=== PATIENT | male | born 1960 | race Caucasian/White ===

== ENCOUNTER 2018-06-22 09:06 | Inpatient (IN) | payer OTHER ==
[~2018-06-22] VITALS: Ht 170.2 cm; Wt 110.3 kg
[2018-06-22] MEDS ORDERED: MECLIZINE 12.5 MG TAB PO ONE ×2 (10:30→12:30)
[2018-06-22] MEDS ORDERED: HYDR25TA6 PO (10:45)
[2018-06-22] MEDS ORDERED: ASPI-903 PO (10:46)
[2018-06-22] MEDS ORDERED: LOSA100T8 PO (10:46)
[2018-06-22] MEDS ORDERED: DIAZEPAM 5 MG TAB PO ONE (12:30)
[2018-06-22] MEDS ORDERED: DIAZEPAM 5 MG/ML SYG IV ONE (14:00)
[2018-06-22] MEDS ORDERED: SOD CHLORIDE 0.9% 1,000 ML IV SCH (15:42)
--- NOTE | 2018-06-22 15:51 | ERD ---
ER Documentation Chief Complaint Chief Complaint SEVERE DIZZINESS, ONSET THIS AM, NO HEADACHE, NO WEAKNESS HPI This is a 57-year-old male here for vertigo. The patient states that he had v ertigo 5 years ago. The patient states that this morning he had sudden onset of severe vertigo with no headache. He says the room is spinning creating nausea but no vomiting. He has no numbness, weakness, speech change, visual change, swallowing difficulty. No ringing in the ears. He says if he moves his head is much worse but keeping his head still does decrease the severity but does not resolved. ROS All systems reviewed and are negative except as per history of present illness. Medications Home Meds Reported Medications Aspirin* (Aspirin* Chew) 81 Mg Tab.chew, 81 MG PO DAILY, TAB.CHEW 06/22/18 Losartan Potassium* (Losartan Potassium*) 100 Mg Tablet, 100 MG PO DAILY, TAB 06/22/18 Hydrochlorothiazide* (Hydrochlorothiazide*) 25 Mg Tab, 25 MG PO DAILY, #30 TAB 06/22/18 Allergies Allergies: Coded Allergies: No Known Allergy (Unverified , 06/22/18) PMhx/Soc Medical and Surgical Hx: pt denies Surgical Hx Hx Cardiac Disorders: Yes (HYPERTENSION) Hx Psychiatric Problems: No Hx Miscellaneous Medical Probl: No Hx Alcohol Use: No Hx Substance Use: No Hx Tobacco Use: No Smoking Status: Never smoker FmHx Family History: No coronary disease Physical Exam Vitals Vital Signs Date Temp Pulse Resp B/P (MAP) Pulse Ox O2 O2 Flow FiO2 Time Delivery Rate 06/22/18 97.1 71 15 150/88 97 Room Air 09:53 (108) 06/22/18 98.0 66 16 162/91 95 09:08 (114) Physical Exam Const: Well-developed, well-nourished Head: Atraumatic, normocephalic Eyes: Normal Conjunctiva, PERRLA, EOMI, normal sclera, horizontal/rotational nystagmus ENT: Normal External Ears, Nose and Mouth, moist mucus membranes. Neck: Full range of motion. No meningismus, no lymphadenopathy. Resp: Clear to auscultation bilaterally, no wheezing, rhonchi, rales Cardio: Regular rate and rhythm, no murmurs, S1 S2 present Abd: Soft, non tender x 4, non distended. Normal bowel sounds, no guarding or rebound, no pulsitile abdominal masses or bruits Skin: No petechiae or rashes, no ecchymosis , no maculopapular rash Back: No midline or flank tenderness Ext: No cyanosis, or edema, FROM x 4, normal inspection, neurovascularly intact x 4 Neur: Awake and alert, STR 5/5 x 4, sensation intact x 4, no focal findings, cerebellum intact, movement of the head induces severe vertigo. Positive Hallpike, Psych: Normal Mood and Affect Results 24 hrs Current Medications Medications Dose Sig/Mark Start Time Status Last (Trade) Ordered Route PRN Stop Time Admin Dose Reason Admin Meclizine 25 mg ONCE ONCE 06/22/18 DC 06/22/18 HCl PO 10:30 10:46 (Antivert) 06/22/18 10:31 Meclizine 25 mg ONCE ONCE 06/22/18 DC 06/22/18 HCl PO 12:30 12:27 (Antivert) 06/22/18 12:31 Diazepam 5 mg ONCE ONCE 06/22/18 DC 06/22/18 (Valium) PO 12:30 12:27 06/22/18 12:31 Diazepam 5 mg ONCE ONCE 06/22/18 DC 06/22/18 (Valium) IV 14:00 15:05 06/22/18 14:01 Procedures/MDM The patient received multiple doses of Antivert and multiple doses of IV Valium. His vertigo is not improved. He still having symptomatic vertigo with nystagmus. I will admit to the hospital to Dr. Gan in order MRI brain with labs. His symptomatology is consistent with the peripheral vertigo however he is unresolving and will admit for further workup Departure Diagnosis: Primary Impression: Vertigo Condition: Stable RAJAT MARTINOPablo VIVAS Jun 22, 2018 15:51
[2018-06-22] MEDS ORDERED: ONDANSETRON 4 MG INJ IV PRN ×2 (16:00→17:00)
[2018-06-22] MEDS ORDERED: ACETAMINOPHEN 325 MG TAB PO PRN ×2 (16:00→17:00)
[2018-06-22] MEDS ORDERED: NACL 0.9% 3 ML SYG IV SCH (17:00)
[2018-06-22] MEDS ORDERED: HYDROmorphONE 0.5 MG/0.5 ML SYG IV PRN (17:00)
[2018-06-22] MEDS: SOD CHLORIDE 0.9% 1,000 ML IV SCH (17:46)
--- NOTE | 2018-06-22 18:02 | NUR ---
ER Admission note: Pt. A/Ox4, VSS, no acute distress. Pt. oriented to room and call light. Walk with me letter given. Pt. brought up by wheelchair and ambulated to bed. IVF hung. Skin assessed, and pictures taken. Meal tray given to pt. Bed alarm on, call light within reach, hourly rounding done, encouraged to call for assistance. Lift Mechanic services used; [place] [phone]. Will continue to monitor and endorse care to oncoming nurse.
[2018-06-22 18:08] VITALS: BP 154/79; PULSE 71; RESP 12
[2018-06-22 18:38] VITALS: Ht 170.2 cm; Wt 110.3 kg
[2018-06-22] MEDS: FAMOTIDINE 20 MG INJ IV SCH (20:24)
--- NOTE | 2018-06-22 21:05 | NUR ---
TO MRI DEPT VIA WHEELCHAIR. FOR MRI OF THE BRAIN.
--- NOTE | 2018-06-22 21:50 | NUR ---
ARRIVED FROM MRI. TO BED COMFORTABLY.
[2018-06-22] MEDS: DIAZEPAM 5 MG/ML SYG IV PRN (23:11)
[2018-06-23 02:00] VITALS: BP 140/74; PULSE 79; RESP 17
[2018-06-23] MEDS: SOD CHLORIDE 0.9% 1,000 ML IV SCH ×3 (05:51→16:18)
--- NOTE | 2018-06-23 06:33 | NUR ---
END OF SHIFT NOTE: PATIENT IS ALERT AND ORIENTED. AMBULATORY WITH ASSIST. STILL WITH DIZZINESS. FALL PRECAUTION OBSERVED. CALL LIGHT WITHIN REACH. MRI OF THE BRAIN DONE. ALL NEEDS MET.
[2018-06-23 08:00] VITALS: BP 142/82; PULSE 79; RESP 19
[2018-06-23] MEDS: FAMOTIDINE 20 MG INJ IV SCH (08:48)
[2018-06-23] MEDS: ENOXAPARIN 30 MG/0.3 ML SYG SC SCH (08:53)
[2018-06-23] MEDS: MECLIZINE 25 MG TAB PO PRN ×2 (10:49→17:53)
--- NOTE | 2018-06-23 12:36 | HP ---
Date/Time of Note Date/Time of Note DATE: 06/23/18 TIME: 12:35 Assessment/Plan VTE Prophylaxis Risk score (from Ns)>0 risk: 1 SCD applied (from Ns): Yes Pharmacological prophylaxis: LMWH Lines/Catheters IV Catheter Type (from Nrs): Peripheral IV Urinary Cath still in place: No Assessment/Plan Hospital Course 1) BPV - meclizine and benzodiazepine 2) hypertension - continue home meds Result Diagram: 06/23/18 0558 06/23/18 0558 Results 24hrs Laboratory Tests Test 06/22/18 16:00 06/23/18 05:58 White Blood Count 9.7 14.5 #H Red Blood Count 4.94 4.86 Hemoglobin 14.6 14.6 Hematocrit 44.0 42.5 Mean Corpuscular Volume 89.1 87.4 Mean Corpuscular Hemoglobin 29.6 30.0 Mean Corpuscular Hemoglobin Concent 33.2 34.4 Red Cell Distribution Width 13.0 12.9 Platelet Count 315 322 Mean Platelet Volume 9.9 9.4 Immature Granulocytes % 0.300 0.300 Neutrophils % 68.7 70.2 Lymphocytes % 19.3 16.5 Monocytes % 8.8 10.9 Eosinophils % 1.9 1.5 Basophils % 1.0 0.6 Nucleated Red Blood Cells % 0.0 0.0 Immature Granulocytes # 0.030 0.040 H Neutrophils # 6.6 10.2 H Lymphocytes # 1.9 2.4 Monocytes # 0.9 1.6 H Eosinophils # 0.2 0.2 Basophils # 0.1 0.1 Nucleated Red Blood Cells # 0.0 0.0 Sodium Level 140 143 Potassium Level 3.4 L 3.5 Chloride Level 99 105 Carbon Dioxide Level 25 26 Anion Gap 16 H 12 Blood Urea Nitrogen 17 15 Creatinine 1.04 1.03 Est Glomerular Filtrat Rate mL/min > 60 > 60 Glucose Level 132 103 Calcium Level 9.0 9.0 Total Bilirubin 0.2 0.3 Direct Bilirubin 0.00 0.00 Indirect Bilirubin 0.2 0.3 Aspartate Amino Transf (AST/SGOT) 36 32 Alanine Aminotransferase (ALT/SGPT) 28 24 Alkaline Phosphatase 106 99 Total Protein 7.9 7.4 Albumin 4.4 4.0 Globulin 3.50 H 3.40 H Albumin/Globulin Ratio 1.25 1.17 Hemoglobin A1c 5.4 HPI/ROS Admit Date/Time Admit Date/Time Jun 22, 2018 at 15:43 Hx of Present Illness Patient with a history of hypertension comes in with severe vertigo for the last 2 days that has cause nausea and vomiting. Patient has had this in the past. PMH/Family/Social Past Medical History Medical History: hypertension Medications Current Medications Sodium Chloride 1,000 ml @ 100 mls/hr Q10H IV Last administered on 06/23/18at 05:51; Admin Dose 100 MLS/HR; Start 06/22/18 at 16:44 IV Flush (NS 3 ml) 3 ml PER PROTOCOL IV Last administered on 06/23/18at 02:23; Admin Dose 3 ML; Start 06/22/18 at 17:00 Ondansetron HCl (Zofran Inj) 4 mg Q6H PRN IV NAUSEA AND/OR VOMITING; Start 06/22/18 at 17:00 Acetaminophen (Tylenol Tab) 650 mg Q6H PRN PO PAIN LEVEL 1-3 OR FEVER; Start 06/22/18 at 17:00 Hydromorphone HCl (Dilaudid) 0.4 mg Q4H PRN IV SEVERE PAIN LEVEL 7-10; Start 06/22/18 at 17:00 Enoxaparin Sodium (Lovenox) 30 mg DAILY SC Last administered on 06/23/18at 08:53; Admin Dose 30 MG; Start 06/23/18 at 09:00 Meclizine HCl (Antivert) 25 mg Q6 PRN PO dizziness Last administered on 06/23/18at 10:49; Admin Dose 25 MG; Start 06/22/18 at 17:00 Diazepam (Valium) 5 mg Q6H PRN IV FOR AGITATION AND SLEEPING Last administered on 06/22/18at 23:11; Admin Dose 5 MG; Start 06/22/18 at 22:00 Famotidine (Pepcid) 20 mg Q12 PO ; Start 06/23/18 at 21:00 Coded Allergies: No Known Allergy (Unverified , 06/22/18) Social History Smoking Status: Never smoker Exam/Review of Systems Vital Signs Vitals Vital Signs Date Temp Pulse Resp B/P (MAP) Pulse Ox O2 O2 Flow FiO2 Time Delivery Rate 06/23/18 98.2 79 19 142/82 93 Room Air 08:00 (102) Intake and Output 12/26/18 12/26/18 12/27/18 1515:00 23:00 07:00 IntakeIntake Total 340 ml 1700 ml OutputOutput Total 500 ml 1300 ml BalanceBalance -160 ml 400 ml Exam Constitutional: well developed Head: normocephalic, atraumatic Neck: supple Respiratory: diminished breath sounds Cardiovascular: regular rate and rhythm Gastrointestinal: soft, non-tender Extremities: normal pulses KEY MIGUEL Jun 23, 2018 12:36
[2018-06-23 14:00] VITALS: BP 138/82; PULSE 80; RESP 18
--- NOTE | 2018-06-23 17:44 | NUR ---
SHIFT SUMMARY REPORT PATIENT STABLE DURING THIS SHIFT. STILL COMPLAINS OF DIZZINESS, MECLIZINE GIVEN. PER PATIENT, HE IS MUCH BETTER TODAY. STILL ON IV FLUIDS, PATENT AND INFUSING. WILL CONTINUE TO MONITOR. Addendum: 06/23/18 at 1748 by ZA PASCUAL RN BED ALARMS ON.
[2018-06-23 20:00] VITALS: BP 158/94; PULSE 81; RESP 18
[2018-06-23] MEDS: FAMOTIDINE 20 MG TAB PO SCH (21:39)
[2018-06-23] MEDS: DIAZEPAM 5 MG/ML SYG IV PRN (21:39)
[2018-06-23 23:10] VITALS: BP 171/93; PULSE 77
[2018-06-23] MEDS: LOSARTAN 50 MG TAB PO SCH (23:24)
[2018-06-24 02:00] VITALS: BP 150/87; PULSE 78; RESP 18
[2018-06-24] MEDS: SOD CHLORIDE 0.9% 1,000 ML IV SCH ×3 (03:10→17:19)
--- NOTE | 2018-06-24 05:15 | NUR ---
END OF SHIFT NOTE: PATIENT STILL EXPERIENCE MILD DIZZINESS. NO COMPLAINTS OF PAIN AND NO SIGNS OF DISTRESS. BLOOD PRESSURE ON HIGH LEVEL AND COVERED WITH LOSARTAN PO ORDERED. FALL PRECAUTION OBSERVED. WILL CONTINUE TO MONITOR.
[2018-06-24 06:00] VITALS: BP 153/96; PULSE 67; RESP 18
[2018-06-24 08:04] VITALS: BP 156/96; PULSE 73; RESP 16
[2018-06-24] MEDS: ASPIRIN 81 MG TAB PO SCH (08:19)
[2018-06-24] MEDS: FAMOTIDINE 20 MG TAB PO SCH ×2 (08:19→21:31)
[2018-06-24] MEDS: HYDROCHLOROTHIAZIDE 25 MG TAB PO SCH (08:20)
[2018-06-24] MEDS: LOSARTAN 50 MG TAB PO SCH ×2 (08:20→21:31)
[2018-06-24] MEDS: ENOXAPARIN 30 MG/0.3 ML SYG SC SCH (08:20)
[2018-06-24] MEDS: MECLIZINE 25 MG TAB PO PRN ×3 (08:26→22:28)
[2018-06-24 14:17] VITALS: BP 150/85; PULSE 80; RESP 18
--- NOTE | 2018-06-24 14:38 | PN ---
Date/Time of Note Date/Time of Note DATE: 06/24/18 TIME: 14:38 Assessment/Plan VTE Prophylaxis Risk score (from Ns)>0 risk: 2 SCD applied (from Ns): Yes Pharmacological prophylaxis: LMWH Lines/Catheters IV Catheter Type (from Nrsg): Peripheral IV Urinary Cath still in place: No Assessment/Plan Hospital Course 1) BPV - meclizine and benzodiazepine 2) hypertension - continue home meds Result Diagram: 06/23/18 0558 06/23/18 0558 Subjective 24 Hr Interval Summary Free Text/Dictation Patient feels better Exam/Review of Systems Vital Signs Vitals Vital Signs Date Temp Pulse Resp B/P (MAP) Pulse Ox O2 O2 Flow FiO2 Time Delivery Rate 06/24/18 98.4 80 18 150/85 95 Room Air 14:17 (106) Intake and Output 06/23/18 06/23/18 06/24/18 1515:00 23:00 07:00 IntakeIntake Total 620 ml 2000 ml 2100 ml OutputOutput Total 950 ml 1200 ml 1700 ml BalanceBalance -330 ml 800 ml 400 ml Exam Constitutional: well developed Head: normocephalic, atraumatic Neck: supple Respiratory: clear to auscultation Cardiovascular: regular rate and rhythm Gastrointestinal: soft, non-tender Extremities: normal pulses Medications Medications Current Medications Sodium Chloride 1,000 ml @ 100 mls/hr Q10H IV Last administered on 06/24/18at 03:10; Admin Dose 100 MLS/HR; Start 06/22/18 at 16:44 IV Flush (NS 3 ml) 3 ml PER PROTOCOL IV Last administered on 06/23/18at 02:23; Admin Dose 3 ML; Start 06/22/18 at 17:00 Ondansetron HCl (Zofran Inj) 4 mg Q6H PRN IV NAUSEA AND/OR VOMITING; Start 06/22/18 at 17:00 Acetaminophen (Tylenol Tab) 650 mg Q6H PRN PO PAIN LEVEL 1-3 OR FEVER; Start 06/22/18 at 17:00 Hydromorphone HCl (Dilaudid) 0.4 mg Q4H PRN IV SEVERE PAIN LEVEL 7-10; Start 06/22/18 at 17:00 Enoxaparin Sodium (Lovenox) 30 mg DAILY SC Last administered on 06/24/18 08:20; Admin Dose 30 MG; Start 06/23/18 at 09:00 Meclizine HCl (Antivert) 25 mg Q6 PRN PO dizziness Last administered on 06/24/18 08:26; Admin Dose 25 MG; Start 06/22/18 at 17:00 Diazepam (Valium) 5 mg Q6H PRN IV FOR AGITATION AND SLEEPING Last administered on 06/23/18 21:39; Admin Dose 5 MG; Start 06/22/18 at 22:00 Famotidine (Pepcid) 20 mg Q12 PO Last administered on 06/24/18 08:19; Admin Dose 20 MG; Start 06/23/18 at 21:00 Aspirin (Aspirin) 81 mg DAILY PO Last administered on 06/24/18 08:19; Admin Dose 81 MG; Start 06/24/18 at 09:00 Hydrochlorothiazide (Hydrochlorothiazide) 25 mg DAILY PO Last administered on 06/24/18 08:20; Admin Dose 25 MG; Start 06/24/18 at 09:00 Losartan Potassium (Cozaar) 100 mg DAILY PO Last administered on 06/24/18 08:20; Admin Dose 100 MG; Start 06/24/18 at 09:00 Losartan Potassium (Cozaar) 100 mg HS PO Last administered on 06/23/18 23:24; Admin Dose 100 MG; Start 06/23/18 at 23:30 KEY MIGUEL Jun 24, 2018 14:38
--- NOTE | 2018-06-24 18:35 | NUR ---
EOSS Patient in no acute distress during shift. Due meds given. IV fluids infusing. Medicated as needed for dizziness. Patient ambulates independently with a steady gait. Will monitor and endorse plan of care to oncoming shift.
[2018-06-24 21:25] VITALS: BP 142/90; PULSE 82; RESP 18
[2018-06-24] MEDS: DIAZEPAM 5 MG/ML SYG IV PRN (21:31)
[2018-06-25 02:26] VITALS: BP 107/60; PULSE 67; RESP 18
[2018-06-25] MEDS: SOD CHLORIDE 0.9% 1,000 ML IV SCH (06:40)
[2018-06-25] MEDS: MECLIZINE 25 MG TAB PO PRN ×2 (06:40→13:16)
--- NOTE | 2018-06-25 07:08 | NUR ---
VSS, pt's BP lower due to him sleeping. High pressure alarm multiple times during shift due to patient's position of arm. Pt medicated for dizziness x 2 and given PRN valium x 1 for sleep, effective.
[2018-06-25 08:20] VITALS: BP 129/85; PULSE 75; RESP 16
[2018-06-25] MEDS: LOSARTAN 50 MG TAB PO SCH (08:22)
[2018-06-25] MEDS: FAMOTIDINE 20 MG TAB PO SCH (08:22)
[2018-06-25] MEDS: ASPIRIN 81 MG TAB PO SCH (08:22)
[2018-06-25] MEDS: ENOXAPARIN 30 MG/0.3 ML SYG SC SCH (08:23)
[2018-06-25] MEDS: HYDROCHLOROTHIAZIDE 25 MG TAB PO SCH (08:23)
--- NOTE | 2018-06-25 11:53 | DS ---
Date/Time of Note Date/Time of Note DATE: 06/25/18 TIME: 11:52 Discharge Summary Admission/Discharge Info Admit Date/Time Jun 24, 2018 at 15:44 Discharge Date/Time 06/25/18 Discharge Diagnosis 1) BPV - antivert - monitor clinically Patient Condition: Fair Consults none Procedures none Hx of Present Illness Patient with a history of hypertension comes in with severe vertigo for the last 2 days that has cause nausea and vomiting. Patient has had this in the past. Hospital Course Patient with a history of hypertension comes in with severe vertigo for the last 2 days that has cause nausea and vomiting. Patient has had this in the past. Patient treated with medicine until his condition improved. Patient will be discharged with more antivert to use at home. 1) BPV - meclizine and benzodiazepine 2) hypertension - continue home meds Home Meds Reported Medications Aspirin* (Aspirin* Chew) 81 Mg Tab.chew, 81 MG PO DAILY, TAB.CHEW 06/22/18 Losartan Potassium* (Losartan Potassium*) 100 Mg Tablet, 100 MG PO DAILY, TAB 06/22/18 Hydrochlorothiazide* (Hydrochlorothiazide*) 25 Mg Tab, 25 MG PO DAILY, #30 TAB 06/22/18 Primary Care Provider Care Physician No Primary KEY MIGUEL Jun 25, 2018 11:53
--- NOTE | 2018-06-25 14:12 | NUR ---
Discharge Summary Patient in no acute distress. Patient verbalized understanding of all discharge instructions including medication and follow up. IV and ID removed. Vital signs stable. Patient belongings including glasses cell phone clothes and wallet taken with patient. Patient escorted via wheelchair to private vehicle accompanied by brother headed for home.
== END 2018-06-25 13:25 | disposition home or self-care (01) | DRG 149 ==
LOC: E/R 09:06 → 5EC 15:43 → OBSVTOIN 06-24 15:44
PROVIDERS: ADMIT Internal Medicine; ATTEND Internal Medicine
DX: H81.10 Benign paroxysmal vertigo, unspecified ear (principal); I10 Essential (primary) hypertension; Z79.82 Long term (current) use of aspirin
CPT/HCPCS: 36415; 70450; 70551; 80053; 83036; 85025; 96374; 99217; G0378; J1650; J3360; J7030